=== PATIENT | female | born 1990 | race Two or more races ===

== ENCOUNTER 2020-11-26 11:31 | Emergency (ER) | payer OTHER, MEDICAID ==
[~2020-11-26] VITALS: Ht 152.4 cm; Wt 81.6 kg
[2020-11-26 11:35] VITALS: BP 132/90
[2020-11-26 12:41] LABS: Salicylate < 1.7 mg/dL (2.8-20.0)
[2020-11-26 12:45] LABS: Acetaminophen < 2.0 ug/mL (10-30)
[2020-11-26 16:57] LABS: Alcohol, Urine < 3.0 mg/dL (0-10); Amphetamine Screen, Urine NEGATIVE (NEGATIVE); Barbiturate Scree,Urine NEGATIVE (NEGATIVE); Benzodiazephine Screen, Urine NEGATIVE (NEGATIVE); Cannabinoid Screen, Urine NEGATIVE (NEGATIVE); Cocaine Screen, Urine NEGATIVE (NEGATIVE); Opiate Scree,Urine NEGATIVE (NEGATIVE); Phencyclidine Screen, Urine NEGATIVE (NEGATIVE)
== END 2020-11-27 00:43 | disposition left against medical advice (07) ==
LOC: ER 11:31
DX: R44.0 Auditory hallucinations (principal); Z53.29 Procedure and treatment not carried out because of patient's decision for other reasons
CPT/HCPCS: 36415; 80307; 80320; 80329; 81025

== ENCOUNTER 2023-07-18 03:14 | Emergency (ER) | payer OTHER, MEDICAID ==
[~2023-07-18] VITALS: Ht 157.5 cm; Wt 140.0 kg
[2023-07-18 04:04] LABS: Basophils # (auto) 0.1 10 ^3/uL (0-0.2); Basophils % (auto) 0.9 % (0.0-2.0); Eosinophils # (auto) 0.2 10 ^3/uL (0-0.8); Eosinophils % (auto) 2.3 % (0.0-7.0); Hematocrit 38.2 % (36.0-46.0); Hemoglobin 12.6 g/dL (12.2-16.2); Lymphocytes % (auto) 29.3 % (10.0-50.0); Mean Corpuscular Hemoglobin 27.8 pg (28.0-32.0); Mean Corpuscular Hgb Conc. 33.1 g/dL (32.0-36.0); Mean Corpuscular Volume 84.1 fL (80.0-100.0); Monocytes # (auto) 0.6 10 ^3/uL (0-1.3); Monocytes % (auto) 8.8 % (0.0-12.0); Neutrophils % (auto) 58.7 % (37.0-80.0); Nucleated Red Blood Cells % 0.1 %; Red Blood Cells 4.54 10^6/uL (4.0-5.20); Red Cell Distribution Width 15.4 % (11.8-14.3); White Blood Cell 6.7 10^3/uL (4.4-10.8)
[2023-07-18 04:29] LABS: Alanine Aminotransferase 34 U/L (7-40); Alkaline Phosphatase 71 U/L (46-116); Anion Gap 11 (5-15); Blood Urea Nitrogen 8 mg/dL (9-23); Calcium 9.4 mg/dL (8.7-10.4); Carbon Dioxide 22 mmol/L (20-30); Chloride 108 mmol/L (98-107); Glucose 104 mg/dL (74-106); Potassium 3.8 mmol/L (3.5-5.1); Sodium 141 mmol/L (136-145)
[2023-07-18 04:30] LABS: Albumin 4.5 g/dL (3.2-4.8); Aspartate Aminotransferase 15 U/L (13-40); BUN/Creatinine Ratio 15.7 (10.0-20.0); Bilirubin, Total 0.4 mg/dL (0.2-1.0); Total Protein 7.1 g/dL (5.7-8.2)
[2023-07-18 05:13] LABS: Acetaminophen < 2.0 UG/ML (10.0-20.0)
[2023-07-18 05:24] LABS: Salicylate < 3.0 mg/dL (2.8-20.0)
[2023-07-18 10:56] LABS: Amphetamine Screen, Urine Neg (NEGATIVE); Barbiturate Scree,Urine Neg (NEGATIVE); Benzodiazephine Screen, Urine Neg (NEGATIVE); Cocaine Screen, Urine Neg (NEGATIVE)
[2023-07-18 10:57] LABS: Cannabinoid Screen, Urine Pos (NEGATIVE); Opiate Scree,Urine Neg (NEGATIVE); Phencyclidine Screen, Urine Neg (NEGATIVE)
[2023-07-18 11:14] VITALS: PULSE 91; RESP 16; O2SAT 96
[2023-07-18 11:18] VITALS: TEMP 98.3
[2023-07-18] MEDS ORDERED: hydrOXYzine 25 MG TAB or CAP PO PRN (16:00)
[2023-07-18] MEDS ORDERED: HYDR25CA PO (19:03)
[2023-07-18] MEDS ORDERED: FLUO20TA36 PO (19:03)
[2023-07-18] MEDS ORDERED: OLAN10TA PO (19:03)
[2023-07-18 19:15] VITALS: BP 156/100; PULSE 92; RESP 20; O2SAT 98
[2023-07-19] MEDS ORDERED: OLANZapine 5 MG TAB PO SCH (10:00)
[2023-07-19] MEDS ORDERED: FLUoxetine HCL 20 MG CAP PO SCH (10:00)
== END 2023-07-18 19:21 | disposition home or self-care (01) ==
LOC: EDUNIT# 03:14 → EDBD 03:14 → ER 03:14
DX: T38.3X2A Poisoning by insulin and oral hypoglycemic [antidiabetic] drugs, intentional self-harm, initial encounter (principal); R45.851 Suicidal ideations; F20.9 Schizophrenia, unspecified; F32.9 Major depressive disorder, single episode, unspecified; E11.9 Type 2 diabetes mellitus without complications; F41.9 Anxiety disorder, unspecified; Y92.89 Other specified places as the place of occurrence of the external cause
CPT/HCPCS: 36415; 80053; 80307; 80329; 84484; 85025; 93005

== ENCOUNTER 2024-08-21 14:18 | Emergency (ER) | payer OTHER, MEDICAID ==
[~2024-08-21] VITALS: Ht 162.6 cm; Wt 104.0 kg
[~2024-08-21 14:18] MED LIST: FLUO20TA42 PO; HYDR25CA PO; OLAN10TA PO
[2024-08-21] MEDS: SODIUM CHLORIDE 0.9% 1,000 ML IV ONE ×2 (15:39→16:33)
[2024-08-21 15:42] LABS: Hematocrit 43.4 % (36.0-46.0); Hemoglobin 14.4 g/dL (12.2-16.2); Mean Corpuscular Hemoglobin 28.4 pg (28.0-32.0); Mean Corpuscular Volume 85.3 fL (80.0-100.0); Nucleated Red Blood Cells % 0.1 %
[2024-08-21 15:57] LABS: Alkaline Phosphatase 111 U/L (46-116); Anion Gap 13 (5-15); BUN/Creatinine Ratio 11.7 (10.0-20.0); Bilirubin, Total 0.7 mg/dL (0.2-1.0); Blood Urea Nitrogen 12 mg/dL (9-23); Carbon Dioxide 21 mmol/L (20-31); Chloride 107 mmol/L (98-107); Potassium 3.8 mmol/L (3.5-5.1); Sodium 141 mmol/L (136-145); Total Protein 8.2 g/dL (5.7-8.2)
[2024-08-21 16:01] LABS: Alanine Aminotransferase 127 U/L (7-40); Albumin 5.4 g/dL (3.2-4.8); Calcium 10.7 mg/dL (8.7-10.4); Glucose 118 mg/dL (74-106)
[2024-08-21] MEDS: ONDANSETRON HCL 4 MG/2 ML VIAL IV ONE (16:01)
[2024-08-21 16:12] LABS: Lipase 31 U/L (12-53)
--- NOTE | 2024-08-21 18:26 | ED.PDOC ---
Psychiatric HPI Comments HPI: Poor Historian. Patient had a suicidal ideation today. She did some self cutting around Her neck that is very superficial. Patient had episode of nausea vomiting and some nonspecific abdominal pain which has all resolved prior to my evaluation. Patient went to the crisis Center today but she was instructed to come here for evaluation. No previous suicide attempts. Past Medical History: Past Surgical History: HPI: 34y F who presents to the ED via EMS for chief complaint of mental health - Per EMS, pt was at crisis crisis center earlier this afternoon and states she was told to come to the ED for evaluation - pt states at crisis center, she had episode of nasusea and 3 vomiting episodes with non-specific abdominal pain - pt states she was home afterwards and states she got into argument with boyfriend and states she broke up with boyfriend - pt states afterwards she was very emotional and states she did some self cutting and states she attempted some self harm around her neck with knife - pt states she also attempted to overdose on 2 of her medications and states she took a handful of each and consumed them: carbamazepine, 200 mg and Zyprexa 10 mg - pt states family afterwards called EMS to the scene - EMS arrived and noted superficial laceration around her neck but otherwise no full laceration or bleeding noted - pt had vitals checked which were normal and pt was brought to the ED for further evaluation - pt in the ED, now denies homicidal ideations and denies auditory and visual hallucinations - pt in the ED, denies any previous suicide attempts - pt states she otherwise has history of HTN and DM but states she has not taken her medications as prescribed in many months due to side effects Past Medical History: HTN, DM, schizophrenia, depression Past Surgical History: denies Social History: Denies ETOH, smoking, and drug use. Medications: carbamazepine, Zyprexa Allergies: copper REVIEW OF SYSTEMS: CONSTITUTIONAL: Denies acute: fever, diaphoresis, chills, HEAD: Denies acute: headache, photophobia Eyes: Denies acute: Double vision, vision loss, eye pain, eye discharge. EARS: Denies acute: tinnitus, hearing loss, ear discharge, ear pain, THROAT: Denies acute: sore throat, swelling, difficulty swallowing , pain with swallowing, change in voice. NECK: Denies acute: neck pain, neck swelling, stiff neck. HEART: Denies acute : chest pain, palpitations, LUNGS: Denies acute: SOB, wheezing, cough, hemoptysis ABDOMEN: Denies acute: abdominal pain, , diarrhea, melena , hematemesis, hematochezia SKIN: Denies acute: rash, redness, lesions, itchiness. EXTREMITIES: Denies acute: calf pain, numbness, tingling, weakness, denies pain in extremity. Denies acute: Low back pain. Neuro: Denies acute: focal neurological deficit, motor or sensory focal neurological deficit, tremors, seizure like activity, confusion, change in mental status, loss of bowel or bladder function, cauda equina like symptoms. : Denies acute: dysuria, hematuria, flank pain, increase in urinary frequency. PSYCH: Denies acute: hallucination, homicidal ideation. FEMALE: Denies acute: abnormal vaginal bleeding, foul odor, unusual discharge. PHYSICAL EXAM: General: ----mild----acute distress, awake and alert. Head: normocephalic, atraumatic. Neck: supple, trachea is midline, no swelling. Throat: Normal phonation. No airway obstruction, no erythema, no exudates, normal phonation Eyes:, no erythema, no purulent discharge, no proptosis, no icterus. Heart: regular rate, regular rhythm, no significant murmur appreciated. Lungs: no apparent respiratory distress, Able to speak in full sentences. No wheezing, no rhonchi, no crackles. No stridors Clear to auscultation bilaterally. Abdomen: non tender to palpation, non distended, soft, no guarding, no rebound, + bowel sounds. Morbidly obese Neuro: Awake, Alert, oriented to name, self, situation, follows commands GCS=15. Speech is normal. Skin: no petechia, no purpura, no cyanosis, non-pale, not jaundice. Lower extremities: --no - Pitting edema no deformity, no focal swelling, no calf TTP. Makes eye contact. moves all four extremities. Face: no apparent facial droop. Ambulating in the ED independently. ED COURSE: DISCLAIMER: This medical document was created using an electronic medical record system with voice recognition software and computerized dictation system. Although this document has been carefully reviewed, there might still be some phonetic and typographical errors. Occasional wrong-word or "sound-alike" substitutions may have occurred due to the inherent limitations of voice recognition software. These areas are purely typographical due to imperfections of the software programs and do not reflect any compromise in the patient's medical care. Please read the chart carefully and recognize, using context, where these substitutions have occurred. Chief Complaint: Suicidal Time Seen by MD: 15:12 Reviewed Notes: Medications, Allergies Information Source: Patient Mode of Arrival: EMS Past Medical History PAST MEDICAL HISTORY: Depression, DM, Schizophrenia, Seizures Surgical History: Unknown PROCEDURE MANAGER History: Denies all PROCEDURE MANAGER Hx Family History Family History: Unknown Social History Smoker: Unknown Alcohol: Unknown Drugs: Unknown Lives In: Home Was a procedure done? Was a procedure done?: No Psych Differential Dx OD Differential Dx: Alcohol Abuse, Anxiety, Bipolar Disorder, Conversion Disorder, Delirium, Depression, Drug Overdose, Accidental, Intentional, Encephalopathy, Hallucinations, Homicidal, Panic Disorder, Personality Disorder, Renal Failure, Respiratory Failure, Schizophrenia, Substance Abuse, Suicidal Attempt, Suicidal Gesture Suicidal Differential Dx: Alcohol Abuse, Anxiety, Bipolar Disorder, Conversion Disorder, Depression, Homicidal, Laceration, Panic Disorder, Personality Disorder, Schizoprenia, Substance Abuse X-Ray, Labs, Meds, VS Vital Signs Date Time Temp Pulse Resp B/P (MAP) Pulse Ox O2 Delivery O2 Flow Rate FiO2 08/21/24 19:30 96 16 96 Room Air* 0 21 08/21/24 19:30 97.5 96 16 145/101 (116) 96 97.5 08/21/24 18:56 99 08/21/24 17:02 98.9 90 16 156/90 (112) 96 98.9 08/21/24 14:36 98.9 115 20 159/88 (111) 96 98.9 08/21/24 14:36 98.9 115 20 159/88 (111) 96 98.9 08/21/24 14:36 115 20 96 Room Air Lab Test 08/21/24 15:24 08/21/24 15:15 Range/Units White Blood Count 12.0 H 4.4-10.8 10^3/uL Red Blood Count 5.08 4.0-5.20 10^6/uL Hemoglobin 14.4 12.2-16.2 g/dL Hematocrit 43.4 36.0-46.0 % Mean Corpuscular Volume 85.3 80.0-100.0 fL Mean Corpuscular Hemoglobin 28.4 28.0-32.0 pg Mean Corpuscular Hemoglobin Concent 33.3 32.0-36.0 g/dL Red Cell Distribution Width 15.3 H 11.8-14.3 % Platelet Count 281 140-450 10^3/uL Mean Platelet Volume 9.8 6.9-10.8 fL Neutrophils (%) (Auto) 77.0 37.0-80.0 % Lymphocytes (%) (Auto) 14.9 10.0-50.0 % Monocytes (%) (Auto) 7.0 0.0-12.0 % Eosinophils (%) (Auto) 0.2 0.0-7.0 % Basophils (%) (Auto) 0.9 0.0-2.0 % Neutrophils # (Auto) 9.2 H 1.6-8.6 10 ^3/uL Lymphocytes # (Auto) 1.8 0.4-5.4 10 ^3/uL Monocytes # (Auto) 0.8 0-1.3 10 ^3/uL Eosinophils # (Auto) 0 0-0.8 10 ^3/uL Basophils # (Auto) 0.1 0-0.2 10 ^3/uL Nucleated Red Blood Cells 0.1 % Sodium Level 141 136-145 mmol/L Potassium Level 3.8 3.5-5.1 mmol/L Chloride Level 107 98-107 mmol/L Carbon Dioxide Level 21 20-31 mmol/L Anion Gap 13 5-15 Blood Urea Nitrogen 12 9-23 mg/dL Creatinine 1.03 H 0.550-1.02 mg/dL Glomerular Filtration Rate Calc 73 >90 mL/min BUN/Creatinine Ratio 11.7 10.0-20.0 Serum Glucose 118 H 74-106 mg/dL Lactic Acid Level 1.8 0.4-2.0 mmol/L Calcium Level 10.7 H 8.7-10.4 mg/dL Total Bilirubin 0.7 0.2-1.0 mg/dL Aspartate Amino Transferase (AST) 76 H 13-40 U/L Alanine Aminotransferase (ALT) 127 H 7-40 U/L Alkaline Phosphatase 111 46-116 U/L Troponin I High Sensitivity 20 </=34 ng/L Total Protein 8.2 5.7-8.2 g/dL Albumin 5.4 H 3.2-4.8 g/dL Lipase 31 12-53 U/L Salicylates Level < 3.0 -30 mg/dL Acetaminophen Level < 2.0 L 10.0-20.0 UG/ML Carbamazepine (Tegretol) Level < 2.0 L 4-12 ug/mL Urine Color Yellow Yellow Urine Clarity Turbid H Clear Urine pH 6.0 5.0-9.0 Urine Specific [place] 1.028 1.001-1.035 Urine Protein 2+ H Negative Urine Ketones 1+ H Negative Urine Blood Negative Negative /uL Urine Nitrite Negative Negative Urine Bilirubin Negative Negative Urine Urobilinogen 2 H Negative mg/dL Urine Leukocyte Esterase Negative Negative /uL Urine RBC 5 0 - 4 /hpf Urine Microscopic WBC 13 H 0-5 /HPF Urine Squamous Epithelial Cells Few <5 /hpf Urine Bacteria Few H None Seen /hpf Urine Hyaline Casts Mod 0 - 2 /lpf Urine Mucus Few None Seen Urine Glucose Trace Normal mg/dL Urine Test Negative Negative Urine Opiates Screen Neg NEGATIVE Urine Fentanyl Screen Neg NEGATIVE Urine Barbiturates Screen Neg NEGATIVE Urine Phencyclidine Screen Neg NEGATIVE Urine Amphetamines Screen Neg NEGATIVE Urine Benzodiazepines Screen Neg NEGATIVE Urine Cocaine Screen Neg NEGATIVE Urine Cannabinoids Screen Pos NEGATIVE Current Medications Medications (Trade) Dose Ordered Sig/Vinicius Route Start Time Stop Time Status Last Admin Sodium Chloride 1,000 ml @ 1,000 mls/hr Q1H ONCE IV 08/21/24 15:15 08/21/24 16:14 DC 08/21/24 15:39 Ondansetron HCl (Zofran) 4 mg ONCE ONCE IV 08/21/24 15:45 08/21/24 15:46 DC 08/21/24 16:01 Sodium Chloride 1,000 ml @ 1,000 mls/hr Q1H ONCE IV 08/21/24 16:15 08/21/24 17:14 DC 08/21/24 16:33 Charcoal (Actidose-Aqua) 50 gm ONCE ONCE PO 08/21/24 19:00 08/21/24 19:01 DC 08/21/24 19:01 Ceftriaxone Sodium 50 ml @ 100 mls/hr ONCE ONCE IV 08/21/24 19:30 08/21/24 19:59 DC 08/21/24 20:07 Time of 1ST Reevaluation: 21:18 (Patient is medically cleared for psychiatric evaluation via tele psych) Reevaluation 1ST: Unchanged Patient Education/Counseling: Diagnosis, Treatment Family Education/Counseling: No Family Present Assigned to Dr. The care of this patient was signed out to my colleague Dr. Casiano. Patient is awaiting tele psych evaluation and awaiting repeat carbamazepine level and further reassessment Comments MDM: patient presented with the above HPI.--psychiatric evaluation/suicidal attempt----workup was initiated. patient was found with the above mentioned diagnosis. the following medications were ordered: please refer to order lists of meds and tests obtained by myself Dr. Lau. Patient ED course and VS have been stabilized. Patient has been reassessed in the ED and remained in a stable condition. Pertinent incidental findings were discussed with the patient and/or family. Patient/family voices understanding and is agreeable with plan. Patient has been observed in the ED adequate length of time to insure improvement/stability. Escalation of care considered: Consideration of escalation to observation or admission Poison control was consulted. Patient is still ED observation status awaiting tele psych evaluation and repeat carbamazepine level. Patient drank charcoal pe r poison control recommendation. The care of this patient was signed out to my colleague Dr. Casiano. All the reports of any imaging studies that were ordered by myself were reviewed by myself. EKG obtained at 1856 our shows sinus rhythm rate 99. No ST segment depression or elevation. Normal intervals. Repeat EKG at 10:55 p.m. our shows sinus rhythm 88. No ST segment depression or elevation. Normal intervals. Departure 1 Departure Time of Disposition: 21:18 Impression: Primary Impression: Overdose Additional Impressions: Suicide attempt Intentional Zyprexa overdose Intentional carbamazepine overdose UTI (urinary tract infection) Bipolar disorder Disposition: 30 STILL A PATIENT Condition: Stable Discharged With: Self Critical Care Note Critical Care Time?: Yes (45 min-critical care time only) I personally scribed for ADAN LAU DO ([email or web address]) on 08/21/24 at 18:26. Electronically submitted by Ashleigh Rausch ([facility] I personally scribed for ADAN LAU DO ([email or web address]) on 08/21/24 at 20:52. Electronically submitted by Ashleigh Rausch ([email or web address]). ADAN LAU DO Aug 21, 2024 18:26
[2024-08-21 18:44] LABS: Urine Protein, UAD 2+ (Negative)
[2024-08-21 19:01] LABS: Amphetamine Screen, Urine Neg (NEGATIVE); Barbiturate Scree,Urine Neg (NEGATIVE); Benzodiazephine Screen, Urine Neg (NEGATIVE); Cannabinoid Screen, Urine Pos (NEGATIVE); Cocaine Screen, Urine Neg (NEGATIVE); Opiate Scree,Urine Neg (NEGATIVE); Phencyclidine Screen, Urine Neg (NEGATIVE)
[2024-08-21] MEDS: ACTIVATED CHARCOAL 50 GM/240 ML SOL PO ONE (19:01)
[2024-08-21 19:30] VITALS: PULSE 96; RESP 16; O2SAT 96
[2024-08-21 19:34] LABS: Acetaminophen < 2.0 UG/ML (10.0-20.0); Salicylate < 3.0 mg/dL (-30)
[2024-08-21] MEDS: cefTRIAXone 1GM/50ML D5W 50 ML IV ONE (20:07)
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
[2024-08-22 07:25] VITALS: PULSE 72; RESP 16; O2SAT 98
--- NOTE | 2024-08-22 08:51 | ECG ---
[facility] Test Date: 2024-08-21 Test Time: 21:53:40 Pat Name: JUNIOR LONDON Department: ED Room: Gender: F Last Inserter: LYDIA : 1990 Requested By: ADAN KIM Order Number: [id number] Reading MD: Brown Aparicio Measurements Intervals [place] Rate: 88 P: 50 DC: 152 QRS: 6 QRSD: 81 T: 3 QT: 348 QTc: 421 Interpretive Statements Sinus rhythm Low voltage, precordial leads Electronically Signed On 08-23-2024 19:29:17 PDT by Brown Aparicio Please click the below link to view image of tracing.
[2024-08-23 08:00] VITALS: BP 135/95; PULSE 77; RESP 16; TEMP 98.3; O2SAT 96
--- NOTE | 2024-08-23 13:00 | ECG ---
[facility] Test Date: 2024-08-22 Test Time: 05:07:14 Pat Name: JUNIOR LONDON Department: ED Room: Gender: F Dietetic Technician: : 1990 Requested By: ADAN KIM Order Number: [id number] Reading MD: Brown Aparicio Measurements Intervals [place] Rate: 82 P: 0 MO: 0 QRS: 32 QRSD: 106 T: 32 QT: 359 QTc: 420 Interpretive Statements Atrial fibrillation Ventricular premature complex Borderline repolarization abnormality Artifact in lead(s) I,III,aVL Electronically Signed On 08-23-2024 19:30:05 PDT by Brown Aparicio Please click the below link to view image of tracing.
--- NOTE | 2024-08-23 16:13 | ECG ---
[facility] Test Date: 2024-08-21 Test Time: 18:56:22 Pat Name: JUNIOR LONDON Department: ER Room: Gender: F Edgerman: MARTIN : 1990 Requested By: ADAN KIM Order Number: [id number] Reading MD: Brown Aparicio Measurements Intervals [place] Rate: 99 P: 57 MD: 152 QRS: 13 QRSD: 82 T: -8 QT: 326 QTc: 419 Interpretive Statements Sinus rhythm Low voltage, precordial leads Borderline T wave abnormalities Electronically Signed On 08-23-2024 19:28:48 PDT by Brown Aparicio Please click the below link to view image of tracing.
== END 2024-08-23 13:25 | disposition left against medical advice (07) ==
LOC: EDUNIT# 14:18 → EDBD 14:18 → ER 14:18
DX: T14.91XA Suicide attempt, initial encounter (principal); T43.592A Poisoning by other antipsychotics and neuroleptics, intentional self-harm, initial encounter; T42.1X2A Poisoning by iminostilbenes, intentional self-harm, initial encounter; R11.2 Nausea with vomiting, unspecified; N39.0 Urinary tract infection, site not specified; F32.A Depression, unspecified; E11.9 Type 2 diabetes mellitus without complications; F20.9 Schizophrenia, unspecified; I10 Essential (primary) hypertension; F41.9 Anxiety disorder, unspecified; Z56.0 Unemployment, unspecified; Z91.410 Personal history of adult physical and sexual abuse; Z91.51 Personal history of suicidal behavior; W26.0XXA Contact with knife, initial encounter; Y93.89 Activity, other specified; Y92.89 Other specified places as the place of occurrence of the external cause; Y99.8 Other external cause status
CPT/HCPCS: 36415; 80053; 80156; 80307; 80329; 81001; 81025; 83605; 83690; 84484; 85025; 93005; 96361; 96365; 96375; 99285; J0696; J2405; J7030; 99291